=== PATIENT | male | born 1955 | race Caucasian/White ===

== ENCOUNTER 2019-08-24 08:43 | Inpatient (IN) ==
[2019-08-24] MEDS ORDERED: NS 1,000 ML IV ONE ×3 (09:18→15:20)
[2019-08-24] MEDS ORDERED: HUMULIN R IV ONE (09:21)
--- NOTE | 2019-08-24 09:33 | PROVIDER DOCUMENTATION ---
HPI-General Adult - General Chief Complaint: Fall Stated Complaint: fall Time Seen by Provider: 08/24/19 09:10 Source: patient, family, old records Allergies/Adverse Reactions: Patient Allergies Allergy/AdvReac Type Severity Reaction Status Date / Time trazodone Allergy Unknown Verified 08/24/19 10:18 Home Medications: Home Medication List Medication Instructions Recorded Confirmed Last Taken Type ATORVAstatin [Lipitor] 1 tab PO DAILY 08/23/19 08/24/19 Unknown History Empagliflozin [Jardiance] 1 tab PO DAILY 08/23/19 08/24/19 Unknown History Fenofibrate 1 tab PO DAILY 08/23/19 08/24/19 Unknown History Liraglutide [Victoza] 12 units SQ HS 08/23/19 08/24/19 Unknown History Metformin E.r. [Glucophage Xr] 2 tab PO BID 08/23/19 08/24/19 Unknown History Promethazine [Phenergan] 25 mg PO Q6H PRN PRN #10 tab 08/23/19 08/24/19 Unknown Rx Ropinirole [Requip] 1 tab PO DAILY 08/23/19 08/24/19 Unknown History Temazepam 2 cap PO HS 08/23/19 08/24/19 Unknown History - History of Present Illness -Gen Adult Nature of Presenting Problems: pt w/ known diabetes and hereditary peroneal palsy (CMT) returns to ED, having been Rx Zoflusa for influenza by Dr. Bernardo earlier in the week, and seen here yesterday by Dr. Grubbs for presumptive dehydration complicating emesis due to flu. pt had mild hyperkalemia, glucose intol w/ slight hypoNa yesterday, treated and released. returns now per EMS w/ hx pt collapsed last night and lay on floor for several hours until EMS was called to bring him this a.m. pt is on Jardiance and metformin et al for DM. Review of Systems - Adult - REVIEW OF SYSTEMS - ADULT Constitutional: reports: see HPI Eyes: reports: no symptoms reported Ears, Nose, Mouth & Throat: reports: no symptoms reported Cardiovascular: reports: no symptoms reported Respiratory: reports: no symptoms reported Gastrointestinal: reports: see HPI, vomiting Genitourinary: reports: no symptoms reported Musculoskeletal: reports: no symptoms reported Integumentary: reports: no symptoms reported Neurological: reports: see HPI Psychiatric: reports: no symptoms reported Endocrine: reports: no symptoms reported Hematologic/Lymphatic: reports: no symptoms reported Allergic/Immunologic: reports: no symptoms reported All Other Systems: Reviewed and Negative Past History - Adult - PAST MEDICAL HISTORY-ADULT Review of Records: reports: Old Records Reviewed Physical Exam-General - PHYSICAL EXAM-ADULT Initial Vital Signs Reviewed: Yes - CONSTITUTIONAL General Appearance: moderate distress, slow to respond - EYES Eyes: PERRL/EOMI. negative: meningismus - HEAD, EARS, NOSE, MOUTH & THROAT HENMT: normocephalic/atraumatic. negative: moist mucous membranes - NECK Neck: supple - RESPIRATORY Respiratory: lungs clear, normal breath sounds - CARDIOVASCULAR Cardiovascular: regular rate, rhythm, tachycardia - GASTROINTESTINAL (ABDOMEN) Abdominal Exam: non tender. negative: rigid, rebound - LYMPHATIC Lymphatic: no adenopathy - MUSCULOSKELETAL Back Exam: no CVA tenderness Extremity: normal range of motion (passive) Peripheral Pulses: radial (R): 1+, radial (L): 1+ - SKIN Integumentary: normal color, ecchymosis. 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 NOW Care 08/24/19 09:22 Active CHEST-1 VIEW [RAD] Stat Exams 08/24/19 09:18 Ordered ABG [RESP] Routine Lab 08/24/19 09:22 Ordered BLOOD CULTURE [BLDCUL] Stat Lab 08/24/19 09:20 Uncollected CBC WITH DIFF [HEME] Stat Lab 08/24/19 09:18 Uncollected CK TOTAL [CHEM] Stat Lab 08/24/19 09:18 Uncollected COMPREHENSIVE METABOLIC PANEL [CHEM] Stat Lab 08/24/19 09:18 Uncollected LACTATE, PLASMA [CHEM] Q3H Lab 08/24/19 09:30 Uncollected LACTATE, PLASMA [CHEM] Q3H Lab 08/24/19 12:30 Uncollected LACTATE, PLASMA [CHEM] Q3H Lab 08/24/19 15:30 Uncollected MAGNESIUM [CHEM] Stat Lab 08/24/19 09:18 Uncollected URINALYSIS W/POSS RFLX CULT [URINALYSIS] Stat Lab 08/24/19 09:18 Uncollected 0.9% Sodium Chloride Inj [Ns] 1,000 ml Med 08/24/19 09:18 Active IV 999 mls/hr 0.9% Sodium Chloride Inj [Ns] 1,000 ml Med 08/24/19 09:21 Active IV 999 mls/hr Insulin Human Regular [Humulin R] Med 08/24/19 09:21 Discontinued 7 unit IV NOW ONE Result Diagrams: 08/24/19 09:25 08/24/19 09:25 - REASSESSMENT Reassessment #2 Time Reassessed: 10:35 Status: unchanged (summary of current findings: profound DKA, hypothermia/hypothyroid lab indices, rhabdomyolysis. no clear evidence of bacterial infection, but pt given empiric Levaquin pending cultures. will consult Hospitalist for admit.) - CONSULTS/PCP/HOSPITALIST Notification #1 *Consult/PCP/Hospitalist*: Hospitalist Time Discussed: 11:08 Consult Disposition: Admit Departure - Departure Date of Disposition Decision: 08/24/19 Time of Disposition Decision: 11:09 DIAGNOSIS: DKA (diabetic ketoacidoses), Rhabdomyolysis, Hypothermia, Hypothyroidism Disposition: ADMITTED INPATIENT 09 Certified Medical Emergency: Emergent Condition: Critical Referrals and Follow-Ups: Jake Grubbs DO [Primary Care Provider] - - Critical Care Note This patient required my direct & personal management of CC.: Yes Total Time (mins): 75 Critical Care Statement: This patient required my direct personal management to treat or rule out processes, the absence of which, could potentiallly result in sudden, clinically significant life or limb threatening deterioration. Attestation - Physician/ SRINI Attestation The physician spent face to face time with patient:: Yes Advanced Practice Provider documentation review:: Supervising physician onsite and consulted in the evaluation and care of this patient. The physician did have a face to face encounter with the patient.
[2019-08-24 09:59] LABS: INR 1.28; PROTIME 16.2 Seconds (11.0-16.0); PTT 37.2 Seconds (22.3-41.8)
[2019-08-24 10:13] LABS: URINE SOURCE CATH
--- NOTE | 2019-08-24 10:13 | Diag Imaging Result Doc PS360 ---
EXAM: CHEST-1 VIEW - 08/24/2019 HISTORY: influenza, syncope TECHNIQUE: Portable chest COMPARISON: 08/23/2019 FINDINGS: Heart size is normal. The lungs appear clear. There is no pleural effusion or pneumothorax identified. IMPRESSION: No evidence of acute disease. Electronically signed by Darrel Jay 08/24/2019 10:11 AM
[2019-08-24 10:23] LABS: BASO# 0.14 X1000 (0.0-0.2); BASO% 0.7 % (0.0-0.8); HEMATOCRIT 48.5 % (42.0-52.0); HEMOGLOBIN 15.7 g/dL (14.0-18.0); IMM GRAN# 1.28 X1000 (0.0-0.04); IMM GRAN% 6.2 % (0.0-0.5); LYMPH# 1.95 X1000 (1.2-3.4); LYMPH% 9.4 % (20.5-51.1); MCH 30.4 PG (27-31); MCHC 32.4 g/dL (33-37); MONO# 2.16 X1000 (0.11-0.59); MONO% 10.4 % (1.7-9.3); MPV 9.7 FL (7.4-10.4); NEUT# 15.25 X1000 (1.4-6.5); NEUT% 73.3 % (42.2-75.2); PLT 266 X1000 (130-400); RBC 5.16 XMIL (4.7-6.1); RDW 12.8 % (11.5-14.5); WBC 20.78 X1000 (4.8-10.8)
[2019-08-24 10:25] LABS: BILIRUBIN URINE NEGATIVE (NEGATIVE); BLOOD URINE MODERATE (NEGATIVE); COLOR YELLOW; GLUCOSE URINE >1000 mg/dL (NEGATIVE); KETONE URINE 100 mg/dL (NEGATIVE); LEUKOCYTES URINE NEGATIVE (NEGATIVE); NITRITE URINE NEGATIVE (NEGATIVE); PROTEIN URINE 50 mg/dL (NEGATIVE); SP GRAVITY URINE 1.022; TURBIDITY URINE CLEAR (CLEAR); UROBILINOGEN URINE NORMAL (NORMAL)
[2019-08-24 10:28] LABS: ESTIMATED GFR > 60
[2019-08-24 10:39] LABS: UR EPITHELIAL CELLS <10 /HPF (<10); URINE BACTERIA NEGATIVE /HPF; URINE RBC <10 /HPF (<10); URINE WBC <10 /HPF (<10)
[2019-08-24] MEDS ORDERED: LEVAQUIN 750 MG/D5W 750 MG/150 ML IVPB IV ONE (10:41)
[2019-08-24 10:45] LABS: URINE YEAST NONE SEEN
[2019-08-24 10:47] LABS: BANDS 10 % (0-1); LYMPHS 10 % (21-51); MONO 2 % (1-9); SEGS 74 % (42-75)
[2019-08-24 10:48] LABS: ALLEN TEST YES; BE -28.3 mmoll (-3.0-3.0); BLOOD TYPE ARTERIAL; HCO3-(ACT) 2.8 mmoll (20.0-26.0); METHB 1.5 % (0.0-1.5); O2(CT) 21.3 mL/dL (15.0-23.0); O2HB 96.8 % (95.0-99.0); PO2(98.6) 141 mmHg (60-100); SAMPLE BLOOD; SAO2 99.8 % (95.0-100.0); THB 15.5 g/dL (11.5-17.4)
[2019-08-24 10:50] LABS: MODALITY ROOM AIR; PCO2(98.6) 11 mmHg (35-45); pH(98.6) 6.94 (7.35-7.45)
[2019-08-24 10:52] LABS: AGAP 44; ALBUMIN 4.4 g/dL (3.5-5.0); ALKALINE PHOSPHATASE 74 U/L (32-122); BUN 21 mg/dL (8-22); CALCIUM 8.6 mg/dL (8.8-10.2); CHLORIDE 94 mmol/L (98-107); CK TOTAL 1346 U/L (24-204); COSMO 301; CREATININE 1.2 mg/dL (0.7-1.2); GLUCOSE 305 mg/dL (70-104); GOT 93 U/L (10-34); GPT 83 U/L (10-44); MAGNESIUM 2.2 mg/dL (1.5-2.7); POTASSIUM 5.3 mmol/L (3.5-5.1); SODIUM 144 mmol/L (136-145); TCO2 6 mmol/L (25-35); TOTAL BILIRUBIN 0.53 mg/dL (0.20-1.00); TOTAL PROTEIN 6.6 g/dL (6.3-8.3)
[2019-08-24] MEDS ORDERED: SODIUM BICARBONATE 8.4% IV ONE (10:53)
[2019-08-24] MEDS ORDERED: D50W SYRINGE IV PRN ×3 (10:54→11:23)
[2019-08-24] MEDS ORDERED: SODIUM PHOSPHATE 30 MMOL in D5W 250 ML IV PRN ×2 (10:54→11:23)
[2019-08-24 10:55] LABS: T4 4.09 ug/dL (4.60-12.00); TSH 0.4 uIUmL (0.27-4.20)
[2019-08-24] MEDS ORDERED: HUMULIN R 100 UNIT in NS 100 ML IV SCH ×2 (11:00→11:30)
[2019-08-24] MEDS ORDERED: MAGNESIUM SULFATE 2 GM/S.W.I. 2 GM/50 ML IVPB IV PRN (11:23)
[2019-08-24] MEDS ORDERED: ZOFRAN IV PRN (11:23)
[2019-08-24] MEDS ORDERED: POTASSIUM CHLORIDE 20% LIQUID PO PRN (11:23)
[2019-08-24] MEDS ORDERED: POTASSIUM CHLORIDE 40 MEQ/SWI 40 MEQ/100 ML IVPB IV PRN (11:23)
[2019-08-24] MEDS ORDERED: TYLENOL PO PRN (11:23)
[2019-08-24] MEDS ORDERED: SODIUM BICARBONATE 8.4% 100 MEQ in STERILE WATER INJ. 500 ML IV PRN (11:23)
[2019-08-24] MEDS ORDERED: COMPAZINE IV PRN (11:23)
[2019-08-24] MEDS ORDERED: POTASSIUM CHLORIDE 20 MEQ/SWI 20 MEQ/100 ML IVPB IV PRN (11:23)
[2019-08-24] MEDS ORDERED: NS 1,000 ML IV SCH (11:30)
[2019-08-24 12:04] LABS: AMYLASE 85 U/L (20-200); LIPASE 114 U/L (13-60)
[2019-08-24 12:06] LABS: ALB/GLOB RATIO 1.3; DIRECT BILIRUBIN 0.3 mg/dL (0.00-0.20); TOTAL BILIRUBIN 0.47 mg/dL (0.20-1.00); TOTAL PROTEIN 7.1 g/dL (6.3-8.3)
[2019-08-24 12:16] LABS: ACETONE SERUM MODERATE (NEGATIVE)
--- NOTE | 2019-08-24 12:38 | Diag Imaging Result Doc PS360 ---
EXAM: CT HEAD W/O CONTRAST - 08/24/2019 HISTORY: altered mental status TECHNIQUE: CT head without contrast COMPARISON: None. FINDINGS: There is no evidence of intracranial hemorrhage, mass effect, midline shift, or hydrocephalus. There is no evidence of infarct, although acute infarcts may not be immediately visible. There is no evidence of skull fracture. There is questionable old fracture deformity right orbital floor noted. IMPRESSION: No visible acute intracranial abnormality. No hemorrhage or mass effect. This exam was performed using automated exposure control, adjustment of mA or kV according to patient size, and/or use of iterative reconstruction technique. Electronically signed by Darrel Jay 08/24/2019 12:36 PM
[2019-08-24] MEDS ORDERED: VANCOMYCIN IV PER PHARMACY MISC SCH (12:45)
--- NOTE | 2019-08-24 12:48 | Diag Imaging Result Doc PS360 ---
EXAM: CT THORAX/ABD/PELVIS W/O CON - 08/24/2019 HISTORY: severe acidosis; leukocytosis; recent flu; vomiting TECHNIQUE: CT thorax and abdomen/pelvis without contrast. No contrast administered per request of the referring provider. COMPARISON: None. FINDINGS: CT thorax: The lungs appear clear. There is no pleural effusion or pneumothorax identified. There are no abnormally enlarged mediastinal lymph nodes identified. CT abdomen/pelvis: There is some limitation of detail without administered contrast. There are no substantial abnormalities of the liver, spleen, adrenal glands, or pancreas identified. There are no calcified gallstones or pericholecystic inflammation identified. There is no renal stone or hydronephrosis identified. There are no substantially enlarged lymph nodes identified. There are lumbar spine degenerative changes with multilevel spinal stenosis noted. There is no evidence of bowel obstruction. The appendix is retrocecal in location and unremarkable. There is no substantial bowel wall thickening identified. There is no abscess identified. There is no free air or free fluid identified. There are streak artifacts from metallic left hip prosthesis which mildly limit detail the pelvis. There is a Marin catheter in the urinary bladder. There is no discrete abnormal pelvic mass or fluid collection identified. IMPRESSION: CT thorax: No evidence of acute disease. CT abdomen/pelvis: No evidence of acute disease. There are lumbar spine degenerative changes with multilevel spinal stenosis noted. This exam was performed using automated exposure control, adjustment of mA or kV according to patient size, and/or use of iterative reconstruction technique. Electronically signed by Darrel Jay 08/24/2019 12:46 PM
--- NOTE | 2019-08-24 12:52 | HISTORY AND PHYSICAL ---
PRIMARY CARE PROVIDER: Dr. Grubbs. CHIEF COMPLAINT: Altered mental status and weakness. HISTORY OF PRESENT ILLNESS: Mr. Diogo Hearn is a 64-year-old, male, who was most recently diagnosed with influenza, not sure if it is A or B, this last , was given a 1- time dose of Xoflusa. According to the , he has been having upper respiratory infection-type symptoms for at least 1-1/2 weeks, so was when they brought him in. He had also been having, since Sunday or Sunday, vomiting with any kind of p.o. intake. He has been having nausea. He coughs, but not coughing up any colors. He denies any fevers, but the day after he received the Xoflusa, and with the diagnosis of the flu, he had felt okay that day, but then that night felt bad, was throwing up, much more weak, not talking as much, no appetite. He came in yesterday, was diagnosed with gastroenteritis and dehydration, and was discharged with Phenergan. Then, around 1:00 this morning, his had heard something. He is walker dependent, but she woke up and found him around 1:00 in the morning on the floor, naked. He would not let her or the daughter get him up, so they bundled him up with as much blankets as they could. During that time, she did not realize that he was scraping his feet underneath the dresser. He was confused, and then this morning went ahead and had him brought into the emergency department. He is found to be in acidosis, specifically diabetic ketoacidosis. He is hyperglycemic, not significantly, but he is significantly acidotic. He has rhabdomyolysis. His thyroid studies are low, and he has hypothermia with a temp that was first recorded at 93.7. White count was 20,000, but no obvious source of infection, other than the recent diagnosis of influenza, so will admit him to the ICU, start him on the DKA protocol. Will go ahead and scan him, head, chest, abdomen, and pelvis. PAST MEDICAL HISTORY: 1. Diabetes mellitus type 2, only on oral medications. 2. Uwezrxp-Wctjd-Uwsut, which leaves his hands and feet cold and weak. 3. Degenerative disk disease and degenerative joint disease. 4. Hypothyroidism. 5. Hyperlipidemia. 6. Not recent teeth extraction from gum disease. PAST SURGICAL HISTORY: 1. Left hip replacement. 2. Tonsillectomy, adenoidectomy. 3. Full teeth extraction. SOCIAL HISTORY: Denies tobacco, alcohol, or illicit drug use. He is walker dependent. In October, he and his have been for 45 years. They have 2 adult children together. He is disabled. 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 His still has to work. FAMILY HISTORY: Mother had diabetes. Father had diabetes and prostate cancer. He had a brother who had thyroid and kidney cancer and liver disease. ALLERGIES: Trazodone. HOME MEDICATIONS: 1. Fenofibrate 160 mg p.o. daily. 2. Metformin 1000 mg p.o. twice daily. 3. Jardiance 25 mg p.o. daily. 4. Atorvastatin 40 mg p.o. daily. 5. Requip 1 mg p.o. daily. 6. Temazepam 30 mg p.o. nightly. 7. Victoza 12 units subcutaneously nightly. 8. Phenergan 25 mg p.o. every 6 hours p.r.n. REVIEW OF SYSTEMS: He denies nausea at this time. He complains of pain in both tops of his feet where he scraped them. States that his back pain feels better, and states he feels a little bit better. Otherwise, 14-point review of systems are complete and all were negative, except for those mentioned above in the HPI. PHYSICAL EXAMINATION: VITAL SIGNS: Temperature 95.1 degrees, heart rate 119, respiratory rate 22, blood pressure 112/67, O2 saturation 99% on room air, 5 feet 10 inches tall, 170 pounds, BMI is 24.4. GENERAL: Mr. Diogo Hearn is a 64-year-old, male. He is in no acute distress. He is able to answer some questions appropriately. He is slightly confused. HEENT: Atraumatic, normocephalic. Pupils are equal and reactive. Extraocular movements were intact. Mucous membranes are dry. NECK: Trachea midline. CARDIOVASCULAR: S1, S2. Tachycardic rate and rhythm. No rubs, gallops, murmurs. No lower extremity edema. There are +2 dorsalis and radial pulses. Negative for JVD or carotid bruits. PULMONARY: Clear to auscultation. Bilateral breath sounds. Decreased in the bases. No accessory muscle use or work of breathing noted. GI: Soft, nontender, nondistended. Positive bowel sounds x4. EXTREMITIES: Decreased range of motion, specifically in the lower extremities. He cannot do PND with the feet, and strength is symmetric; however, extremely weak, about a 2/5 strength. NEUROLOGIC: Oriented to name only. Follows commands. Decreased sensory in the lower extremities. He feels like they are burning because they are red and hot, and normally he has got cold lower extremities. SKIN: Warm, dry, intact, except for the tops of his feet, where he has been scraping them on a dresser while he was on the floor. LABORATORY DATA: White blood cells 20,000, hemoglobin 15, hematocrit 48, platelet count 266,000. INR is 1.28, PTT is 37.2. PH 6.94, pCO2 of 11, PO2 of 141, bicarb 2.8, base excess is -28, saturation 96%, lactate 1 on the ABGs. Serum lactate is 1.5. Sodium 144, potassium 5.3, BUN 21, creatinine is 1.2, glucose 305, calcium 8.6, magnesium 2.2, bilirubin 0.53, AST 93, ALT 83. CK 1346. Troponin 29. Albumin 4.4, lactate 1.5, TSH 0.40, T4 of 4.09. Urinalysis shows 50 protein, greater than 1000 glucose, 100 ketones, moderate blood. MICROBIOLOGY: Blood cultures obtained. IMAGING: Chest x-ray: No acute disease. ASSESSMENT AND PLAN: 1. Diabetic ketoacidosis. He will be on the protocol. He has got some mild hyperkalemia with it, and severe metabolic acidosis with anion gap of 44. He will be on an insulin drip. He has received intravenous fluids, and will replace electrolytes per protocol. 2. Recent diagnosis of gastroenteritis. He has had vomiting for several days, causing dehydration and even rhabdomyolysis, so again, he is receiving intravenous fluid hydration. He can have antiemetics. 3. Leukocytosis with no clear evidence of infection. However, he is very acidotic and he has been vomiting and he was recently diagnosed with the flu, so he will be on broad-spectrum antibiotics. 4. Recent diagnosis of influenza. Received a dose of Xoflusa. We could consider putting him on Tamiflu, but it an also have gastrointestinal side effects, and he is already experiencing that, which may make him more nauseated and throw up. 5. Hypothyroidism with hypothermia. He has got the Seng Hugger. They are warming him up. Will continue his Synthroid. He maybe could use a dose of intravenous Synthroid possibly. 6. Hyperlipidemia. Will hold the fenofibrate. He does have some transaminitis right now, probably from dehydration. 7. History of Qknwyqa-Sgufp-Hicuc, which already makes him weak in all extremities, cold hands and feet. However, his feet are actually really hot and kind of in a red state at this moment. He uses a walker at home. Will do physical therapy. 8. Diabetes mellitus type 2. Please see #1, and will check and see what his hemoglobin A1c is. Hold oral diabetic medications for now. 9. Rhabdomyolysis. Will do daily CKs, and he is on intravenous fluids. Kidney function is currently intact. 10. Metabolic encephalopathy. Hopefully, should improve once acidosis and his anion gap closes. Dictated by ELODIA López for Edgardo Graham MD cc: ELODIA López MD
[2019-08-24] MEDS: D5 NS 1,000 ML IV PRN ×2 (13:03→20:20)
[2019-08-24 13:15] LABS: UR AMPHETAMINES QUAL NONE DETECTED (NONE DETECT); UR BARBITUATES QUAL NONE DETECTED (NONE DETECT); UR BENZODIAZEPIN QUAL PRESUMPTIVE POSITIVE (NONE DETECT); UR CANNABINOIDS QUAL NONE DETECTED (NONE DETECT); UR COCAINE QUAL NONE DETECTED (NONE DETECT); UR METHADONE QUAL NONE DETECTED (NONE DETECT); UR OPIATES QUAL NONE DETECTED (NONE DETECT); UR OXYCODONE QUAL NONE DETECTED (NONE DETECT); UR PCP QUAL NONE DETECTED (NONE DETECT)
[2019-08-24] MEDS: SODIUM BICARBONATE 8.4% 150 MEQ in STERILE WATER INJ. 1,000 ML IV SCH (13:19)
[2019-08-24 13:36] LABS: AGAP 41; BUN 18 mg/dL (8-22); CALCIUM 7.6 mg/dL (8.8-10.2); CHLORIDE 102 mmol/L (98-107); COSMO 302; CREATININE 1.1 mg/dL (0.7-1.2); ESTIMATED GFR > 60; GLUCOSE 199 mg/dL (70-104); PHOSPHORUS 2.6 mg/dL (2.7-4.5); POTASSIUM 4.3 mmol/L (3.5-5.1); SODIUM 148 mmol/L (136-145); TCO2 5 mmol/L (25-35)
[2019-08-24 13:43] LABS: ALLEN TEST YES; BE -22.4 mmoll (-3.0-3.0); BLOOD TYPE ARTERIAL; HCO3-(ACT) 7.4 mmoll (20.0-26.0); METHB 1.5 % (0.0-1.5); O2(CT) 19.7 mL/dL (15.0-23.0); O2HB 96.7 % (95.0-99.0); PO2(98.6) 124 mmHg (60-100); SAMPLE BLOOD; SAO2 99.8 % (95.0-100.0); THB 14.4 g/dL (11.5-17.4)
[2019-08-24 13:44] LABS: MODALITY ROOM AIR; PCO2(98.6) 12 mmHg (35-45); pH(98.6) 7.14 (7.35-7.45)
[2019-08-24] MEDS ORDERED: VANCOMYCIN 2 GM in NS 500 ML IV ONE (14:00)
[2019-08-24 16:22] LABS: ESTIMATED GFR > 60
[2019-08-24 16:26] LABS: AGAP 36; BUN 17 mg/dL (8-22); CALCIUM 7.8 mg/dL (8.8-10.2); CHLORIDE 105 mmol/L (98-107); COSMO 302; GLUCOSE 211 mg/dL (70-104); PHOSPHORUS 1.9 mg/dL (2.7-4.5); POTASSIUM 4.3 mmol/L (3.5-5.1); SODIUM 148 mmol/L (136-145); TCO2 7 mmol/L (25-35)
[2019-08-24] MEDS: PROTONIX IV SCH (17:07)
[2019-08-24] MEDS: SODIUM CHLORIDE 0.9% INJ SCH (17:07)
--- NOTE | 2019-08-24 17:21 | HISTORY AND PHYSICAL ---
The patient had recently been diagnosed with the flu. He came in very ill, he came to the ER yesterday for the flu. He had recently been treated, he was sent home and somehow he fell and was unable to get up. He has a history of hereditary peroneal palsy so I guess maybe he has got a footdrop. He had been given Xofluza for influenza recently. He is diabetic but non-insulin dependent. He came in today with profound acidosis considering DKA, hypothermia rhabdo, DKA. He is going to get fluids and follow very closely and IV insulin and we will continue to monitor. He is significantly acidotic. He is on a sodium bicarbonate drip as well and the rhabdo we will continue the bicarbonate drip and metabolic acidosis he is on bicarbonate drip. We will adjust insulin accordingly. His A1c is actually not that badly controlled 7 but I think he has just been out of his medications unable to take them. Slda-[id number] encounter with Jennifer Hernandez. 30 minute critical care time DKA, IV insulin. cc: Edgardo Graham MD
--- NOTE | 2019-08-24 17:22 | EKG Report ---
Test Performed on : 08/24/2019 09:00:45 AM Test Reason : tachycardia Blood Pressure : / mmHG Vent. Rate : 157 BPM Atrial Rate : 107 BPM P-R Int : 000 ms QRS Dur : 058 ms QT Int : 216 ms P-R-T Axes : 000 -40 118 degrees QTc Int : 349 ms Poor data quality, interpretation may be adversely affected Atrial fibrillation. with rapid ventricular response. with premature ventricular or aberrantly conduc anup complexes. Left axis deviation Low voltage QRS Inferior-posterior infarct , age undetermined Abnormal ECG No previous ECGs available Unconfirmed Result
[2019-08-24] MEDS: POTASSIUM CHLORIDE 10% LIQUID PO PRN ×2 (18:04→21:32)
[2019-08-24] MEDS: ZOSYN 3.375 GM in NS 50 ML IV SCH (20:17)
[2019-08-24] MEDS: RESTORIL PO SCH (20:17)
[2019-08-24 20:22] LABS: ALLEN TEST YES; BE -11.9 mmoll (-3.0-3.0); BLOOD TYPE ARTERIAL; HCO3-(ACT) 15.6 mmoll (20.0-26.0); METHB 1.7 % (0.0-1.5); O2HB 96.6 % (95.0-99.0); PO2(98.6) 158 mmHg (60-100); SAMPLE BLOOD; SAO2 99.6 % (95.0-100.0); pH(98.6) 7.37 (7.35-7.45)
[2019-08-24 20:23] LABS: MODALITY ROOM AIR
[2019-08-24 20:24] LABS: PCO2(98.6) 19 mmHg (35-45)
[2019-08-24 20:40] LABS: AGAP 23; BUN 14 mg/dL (8-22); CALCIUM 7.6 mg/dL (8.8-10.2); CHLORIDE 113 mmol/L (98-107); COSMO 295; CREATININE 0.8 mg/dL (0.7-1.2); ESTIMATED GFR > 60; GLUCOSE 161 mg/dL (70-104); MAGNESIUM 1.6 mg/dL (1.5-2.7); POTASSIUM 4.1 mmol/L (3.5-5.1); SODIUM 146 mmol/L (136-145); TCO2 10 mmol/L (25-35)
[2019-08-24 21:04] LABS: PHOSPHORUS 0.5 mg/dL (2.7-4.5)
[2019-08-24 23:35] LABS: ALLEN TEST YES; BE -9.2 mmoll (-3.0-3.0); BLOOD TYPE ARTERIAL; HCO3-(ACT) 17.7 mmoll (20.0-26.0); METHB 1.2 % (0.0-1.5); O2(CT) 17.1 mL/dL (15.0-23.0); O2HB 96.1 % (95.0-99.0); PCO2(98.6) 24 mmHg (35-45); PO2(98.6) 82 mmHg (60-100); SAMPLE BLOOD; SAO2 98.6 % (95.0-100.0); THB 12.6 g/dL (11.5-17.4); pH(98.6) 7.38 (7.35-7.45)
[2019-08-24 23:37] LABS: MODALITY ROOM AIR
[2019-08-25 01:21] LABS: AGAP 24; BUN 12 mg/dL (8-22); CALCIUM 6.8 mg/dL (8.8-10.2); CHLORIDE 111 mmol/L (98-107); COSMO 298; CREATININE 0.9 mg/dL (0.7-1.2); ESTIMATED GFR > 60; GLUCOSE 168 mg/dL (70-104); MAGNESIUM 2.5 mg/dL (1.5-2.7); PHOSPHORUS 1.3 mg/dL (2.7-4.5); SODIUM 148 mmol/L (136-145); TCO2 14 mmol/L (25-35)
[2019-08-25] MEDS ORDERED: CALCIUM GLUCONATE 2 GM in NS 100 ML IV ONE (01:24)
[2019-08-25] MEDS: ZOSYN 3.375 GM in NS 50 ML IV SCH ×2 (01:47→08:17)
[2019-08-25] MEDS: POTASSIUM CHLORIDE 10% LIQUID PO PRN ×6 (01:47→20:39)
[2019-08-25 03:47] LABS: ALLEN TEST YES; BE -2.9 mmoll (-3.0-3.0); BLOOD TYPE ARTERIAL; HCO3-(ACT) 22.6 mmoll (20.0-26.0); METHB 1.4 % (0.0-1.5); O2(CT) 15.8 mL/dL (15.0-23.0); O2HB 95.9 % (95.0-99.0); PCO2(98.6) 30 mmHg (35-45); PO2(98.6) 80 mmHg (60-100); SAMPLE BLOOD; SAO2 98.5 % (95.0-100.0); THB 11.7 g/dL (11.5-17.4); pH(98.6) 7.44 (7.35-7.45)
[2019-08-25 03:48] LABS: MODALITY ROOM AIR
[2019-08-25] MEDS: D5 NS 1,000 ML IV PRN (04:30)
[2019-08-25] MEDS: PROTONIX IV SCH ×2 (04:30→16:23)
[2019-08-25] MEDS: SODIUM BICARBONATE 8.4% 150 MEQ in STERILE WATER INJ. 1,000 ML IV SCH (04:30)
[2019-08-25 04:32] LABS: AGAP 17; ALB/GLOB RATIO 1.6; ALBUMIN 2.7 g/dL (3.5-5.0); ALKALINE PHOSPHATASE 46 U/L (32-122); BUN 10 mg/dL (8-22); CALCIUM 7.8 mg/dL (8.8-10.2); CHLORIDE 112 mmol/L (98-107); CK TOTAL 770 U/L (24-204); COSMO 293; CREATININE 0.8 mg/dL (0.7-1.2); ESTIMATED GFR > 60; GLUCOSE 101 mg/dL (70-104); GOT 55 U/L (10-34); GPT 48 U/L (10-44); MAGNESIUM 2.2 mg/dL (1.5-2.7); POTASSIUM 3.8 mmol/L (3.5-5.1); SODIUM 148 mmol/L (136-145); TCO2 19 mmol/L (25-35); TOTAL PROTEIN 4.4 g/dL (6.3-8.3)
[2019-08-25 04:42] LABS: BASO# 0.01 X1000 (0.0-0.2); BASO% 0.1 % (0.0-0.8); HEMATOCRIT 32.2 % (42.0-52.0); HEMOGLOBIN 11.1 g/dL (14.0-18.0); IMM GRAN# 0.21 X1000 (0.0-0.04); IMM GRAN% 2.9 % (0.0-0.5); LYMPH# 0.57 X1000 (1.2-3.4); LYMPH% 7.9 % (20.5-51.1); MCH 30.1 PG (27-31); MCHC 34.5 g/dL (33-37); MCV 87.3 FL (81-99); MONO# 0.79 X1000 (0.11-0.59); MONO% 10.9 % (1.7-9.3); MPV 9.2 FL (7.4-10.4); NEUT# 5.67 X1000 (1.4-6.5); NEUT% 78.2 % (42.2-75.2); PLT 183 X1000 (130-400); RBC 3.69 XMIL (4.7-6.1); WBC 7.25 X1000 (4.8-10.8)
--- NOTE | 2019-08-25 07:34 | EKG Report ---
Test Performed on : 08/25/2019 07:13:25 AM Test Reason : dka Blood Pressure : / mmHG Vent. Rate : 100 BPM Atrial Rate : 100 BPM P-R Int : 146 ms QRS Dur : 074 ms QT Int : 344 ms P-R-T Axes : 092 -28 037 degrees QTc Int : 443 ms Normal sinus rhythm. Low voltage QRS Possible Inferior infarct (cited on or before 24-AUG-2019) Abnormal ECG When compared with ECG of 24-AUG-2019 21:28, (Unconfirmed) Vent. rate has decreased BY 70 BPM Confirmed by Quinten Stone MD ([id number]) on 08/26/2019 9:54:43 PM
--- NOTE | 2019-08-25 08:05 | EKG Report ---
Test Performed on : 08/24/2019 9:28:47 PM Test Reason : TACHY Blood Pressure : / mmHG Vent. Rate : 170 BPM Atrial Rate : 090 BPM P-R Int : 000 ms QRS Dur : 080 ms QT Int : 290 ms P-R-T Axes : 000 -68 072 degrees QTc Int : 487 ms Supraventricular tachycardia. vs. atrial flutter with RVR Left axis deviation Low voltage QRS Inferior-posterior infarct (cited on or before 24-AUG-2019) Abnormal ECG When compared with ECG of 24-AUG-2019 10:31, (Unconfirmed) Non-specific change in ST segment in Anterior leads Confirmed by Quinten Stone MD ([id number]) on 08/26/2019 9:50:10 PM
[2019-08-25] MEDS: REQUIP PO SCH (08:17)
[2019-08-25 08:22] LABS: ALLEN TEST YES; BE -8.8 mmoll (-3.0-3.0); BLOOD TYPE ARTERIAL; METHB 1.6 % (0.0-1.5); O2(CT) 15.9 mL/dL (15.0-23.0); O2HB 95.9 % (95.0-99.0); PCO2(98.6) 24 mmHg (35-45); PO2(98.6) 86 mmHg (60-100); SAMPLE BLOOD; THB 11.7 g/dL (11.5-17.4); pH(98.6) 7.39 (7.35-7.45)
[2019-08-25 08:23] LABS: MODALITY ROOM AIR
[2019-08-25 08:27] LABS: AGAP 23; BUN 8 mg/dL (8-22); CALCIUM 7.5 mg/dL (8.8-10.2); CHLORIDE 109 mmol/L (98-107); COSMO 295; CREATININE 0.8 mg/dL (0.7-1.2); ESTIMATED GFR > 60; GLUCOSE 168 mg/dL (70-104); POTASSIUM 4.1 mmol/L (3.5-5.1); SODIUM 147 mmol/L (136-145); TCO2 15 mmol/L (25-35)
[2019-08-25] MEDS: D5 1/2 NS 1,000 ML IV SCH (12:11)
[2019-08-25 12:36] LABS: ESTIMATED GFR > 60
[2019-08-25 12:42] LABS: AGAP 22; BUN 8 mg/dL (8-22); CALCIUM 7.9 mg/dL (8.8-10.2); CHLORIDE 109 mmol/L (98-107); COSMO 293; CREATININE 0.8 mg/dL (0.7-1.2); GLUCOSE 204 mg/dL (70-104); MAGNESIUM 2.2 mg/dL (1.5-2.7); POTASSIUM 4.4 mmol/L (3.5-5.1); SODIUM 145 mmol/L (136-145); TCO2 14 mmol/L (25-35)
--- NOTE | 2019-08-25 12:42 | PROGRESS NOTE ---
DATE: 08/25/2019 SUBJECTIVE: The patient has no major complaints. OBJECTIVE: Vital Signs: Blood pressure is 91/54, heart rate 86, respiratory rate 15, temp was 97.9 degrees. Cardiovascular: Regular rate and rhythm. Pulmonary: Bilateral breath sounds. Clear to auscultation. GI: Soft, nontender, nondistended. Bowel sounds are positive. LABORATORY DATA: White count is 7.39. PCO2 of 24, PaO2 of 86. PROBLEM LIST: 1. Diabetic ketoacidosis. Still not quite where gap is closed, but will continue to follow. 2. Influenza, gastroenteritis. That seems to be better. I do not have any evidence of infection, so I have stopped his antibiotics, and his white count is normal today. I think the leukocytosis is due to the diabetic ketoacidosis. 3. Hypothyroidism is improved. I do not think his numbers are off. His TSH is on the high side. 4. Protein calorie malnutrition. Will continue to follow. cc: Edgardo Graham MD
[2019-08-25] MEDS ORDERED: VANCOMYCIN 1.7 GM in NS 250 ML IV SCH (14:00)
[2019-08-25] MEDS: SODIUM CHLORIDE 0.9% INJ SCH (16:23)
[2019-08-25 17:21] LABS: AGAP 16; BUN 7 mg/dL (8-22); CALCIUM 7.7 mg/dL (8.8-10.2); CHLORIDE 109 mmol/L (98-107); COSMO 286; CREATININE 0.8 mg/dL (0.7-1.2); ESTIMATED GFR > 60; GLUCOSE 162 mg/dL (70-104); POTASSIUM 4.1 mmol/L (3.5-5.1); SODIUM 143 mmol/L (136-145); TCO2 18 mmol/L (25-35)
[2019-08-25] MEDS: RESTORIL PO SCH (20:09)
[2019-08-25 20:13] LABS: AGAP 15; BUN 6 mg/dL (8-22); CALCIUM 7.6 mg/dL (8.8-10.2); CHLORIDE 105 mmol/L (98-107); COSMO 278; CREATININE 0.7 mg/dL (0.7-1.2); ESTIMATED GFR > 60; GLUCOSE 147 mg/dL (70-104); SODIUM 139 mmol/L (136-145); TCO2 19 mmol/L (25-35)
[2019-08-26] LABS: AGAP 16; BUN 5 mg/dL (8-22); CALCIUM 7.6 mg/dL (8.8-10.2); CHLORIDE 110 mmol/L (98-107); COSMO 288; CREATININE 0.7 mg/dL (0.7-1.2); ESTIMATED GFR > 60; GLUCOSE 134 mg/dL (70-104); POTASSIUM 4.3 mmol/L (3.5-5.1); SODIUM 145 mmol/L (136-145); TCO2 19 mmol/L (25-35)
[2019-08-26] MEDS: POTASSIUM CHLORIDE 10% LIQUID PO PRN ×3 (00:07→10:52)
[2019-08-26] MEDS: D5 1/2 NS 1,000 ML IV SCH (02:29)
[2019-08-26 03:53] LABS: AGAP 15; BUN 5 mg/dL (8-22); CALCIUM 7.5 mg/dL (8.8-10.2); CHLORIDE 105 mmol/L (98-107); COSMO 277; CREATININE 0.6 mg/dL (0.7-1.2); ESTIMATED GFR > 60; GLUCOSE 131 mg/dL (70-104); POTASSIUM 4.2 mmol/L (3.5-5.1); SODIUM 139 mmol/L (136-145); TCO2 19 mmol/L (25-35)
[2019-08-26] MEDS: SODIUM CHLORIDE 0.9% INJ SCH (04:40)
[2019-08-26] MEDS: PROTONIX IV SCH ×2 (04:40→16:54)
[2019-08-26 06:14] LABS: EOS# 0.01 X1000 (0.0-0.7); EOS% 0.2 % (0.0-10.0); HEMATOCRIT 33.4 % (42.0-52.0); HEMOGLOBIN 11.5 g/dL (14.0-18.0); IMM GRAN# 0.05 X1000 (0.0-0.04); LYMPH# 1.39 X1000 (1.2-3.4); LYMPH% 27.6 % (20.5-51.1); MCHC 34.4 g/dL (33-37); MCV 87.2 FL (81-99); MONO# 0.44 X1000 (0.11-0.59); MONO% 8.7 % (1.7-9.3); MPV 9.5 FL (7.4-10.4); NEUT# 3.14 X1000 (1.4-6.5); NEUT% 62.5 % (42.2-75.2); PLT 174 X1000 (130-400); RBC 3.83 XMIL (4.7-6.1); RDW 12.3 % (11.5-14.5); WBC 5.03 X1000 (4.8-10.8)
[2019-08-26 06:43] LABS: AGAP 16; ALBUMIN 2.5 g/dL (3.5-5.0); ALKALINE PHOSPHATASE 49 U/L (32-122); BUN 5 mg/dL (8-22); CALCIUM 7.4 mg/dL (8.8-10.2); CHLORIDE 109 mmol/L (98-107); CK TOTAL 576 U/L (24-204); COSMO 280; CREATININE 0.7 mg/dL (0.7-1.2); ESTIMATED GFR > 60; GLUCOSE 128 mg/dL (70-104); GOT 72 U/L (10-34); GPT 45 U/L (10-44); MAGNESIUM 2.1 mg/dL (1.5-2.7); POTASSIUM 4.8 mmol/L (3.5-5.1); SODIUM 141 mmol/L (136-145); TCO2 16 mmol/L (25-35); TOTAL BILIRUBIN 0.34 mg/dL (0.20-1.00); TOTAL PROTEIN 4.9 g/dL (6.3-8.3)
[2019-08-26] MEDS: REQUIP PO SCH (08:31)
[2019-08-26 10:35] LABS: AGAP 13; BUN 5 mg/dL (8-22); CALCIUM 7.3 mg/dL (8.8-10.2); CHLORIDE 104 mmol/L (98-107); COSMO 275; CREATININE 0.6 mg/dL (0.7-1.2); ESTIMATED GFR > 60; GLUCOSE 169 mg/dL (70-104); SODIUM 137 mmol/L (136-145); TCO2 20 mmol/L (25-35)
[2019-08-26] MEDS ORDERED: HUMULIN R 100 UNIT in NS 100 ML IV SCH (11:50)
[2019-08-26] MEDS: LANTUS INSULIN SUBQ SCH (12:07)
[2019-08-26] MEDS ORDERED: NS 500 ML IV ONE (12:07)
[2019-08-26] MEDS: HUMULIN R SUBQ SCH ×3 (12:37→19:30)
--- NOTE | 2019-08-26 12:41 | PROGRESS NOTE ---
DATE: 08/26/2019 SUBJECTIVE: The patient has no major complaints. He looks a little bit better. OBJECTIVE: Vital Signs: Blood pressure is in the 90s/50s, heart rate 76, respiratory rate is 16, temperature was afebrile, but at least not hypothermic. Cardiovascular: Regular rate and rhythm. Pulmonary: Bilateral breath sounds. Clear to auscultation. GI: Soft, nontender, nondistended. Bowel sounds were positive. LABORATORY DATA: White count is 5, hemoglobin and hematocrit 11 and 33, platelets 174,000. His last chemistry showed a bicarb of 20, with a gap of 13, so he is basically closed. He seems to be doing better. ASSESSMENT AND PLAN: 1. Diabetic ketoacidosis. Gap is closed. We will transfer him to [facility], and follow. 2. Influenza, gastroenteritis. He seems to be better. He is not on any antibiotics. 3. Hypothyroidism. He has got a low T4, but a normal TSH. He is kind of borderline. 4. Protein calorie malnutrition. We will continue nutritional supplements, and follow closely. I think he is probably stable to go to the floor. 5. Rhabdomyolysis with acute kidney injury. That seems to be stable. His CK is down to 576. Continue fluids for the time being. In fact, I am going to bolus him a little bit today. 6. Disposition. Again, I think he is probably okay to go to step-down. Will make those arrangements. cc: Edgardo Graham MD
[2019-08-26] MEDS: RESTORIL PO SCH (20:55)
[2019-08-27] MEDS: HUMULIN R SUBQ SCH ×6 (00:19→20:00)
[2019-08-27] MEDS: PROTONIX IV SCH ×2 (04:43→16:34)
[2019-08-27 07:06] LABS: EOS# 0.01 X1000 (0.0-0.7); EOS% 0.2 % (0.0-10.0); HEMATOCRIT 38.7 % (42.0-52.0); HEMOGLOBIN 13.5 g/dL (14.0-18.0); IMM GRAN# 0.03 X1000 (0.0-0.04); IMM GRAN% 0.7 % (0.0-0.5); LYMPH# 1.19 X1000 (1.2-3.4); LYMPH% 28.6 % (20.5-51.1); MCH 30.4 PG (27-31); MCHC 34.9 g/dL (33-37); MCV 87.2 FL (81-99); MONO# 0.36 X1000 (0.11-0.59); MONO% 8.7 % (1.7-9.3); MPV 9.5 FL (7.4-10.4); NEUT# 2.57 X1000 (1.4-6.5); NEUT% 61.8 % (42.2-75.2); PLT 167 X1000 (130-400); RBC 4.44 XMIL (4.7-6.1); RDW 12.4 % (11.5-14.5); WBC 4.16 X1000 (4.8-10.8)
[2019-08-27 07:25] LABS: AGAP 13; ALB/GLOB RATIO 1.2; ALKALINE PHOSPHATASE 54 U/L (32-122); BUN 5 mg/dL (8-22); CHLORIDE 106 mmol/L (98-107); CK TOTAL 310 U/L (24-204); COSMO 284; CREATININE 0.5 mg/dL (0.7-1.2); ESTIMATED GFR > 60; GLUCOSE 125 mg/dL (70-104); GOT 62 U/L (10-34); GPT 49 U/L (10-44); MAGNESIUM 2.2 mg/dL (1.5-2.7); POTASSIUM 4.4 mmol/L (3.5-5.1); SODIUM 143 mmol/L (136-145); TCO2 24 mmol/L (25-35); TOTAL BILIRUBIN 0.62 mg/dL (0.20-1.00); TOTAL PROTEIN 5.6 g/dL (6.3-8.3)
[2019-08-27] MEDS: LANTUS INSULIN SUBQ SCH (08:25)
[2019-08-27] MEDS: REQUIP PO SCH (08:27)
--- NOTE | 2019-08-27 14:31 | PROGRESS NOTE ---
DATE: 08/27/2019 SUBJECTIVE: The patient has no major complaints. OBJECTIVE: Vital signs: Blood pressure is 103/66, heart rate of 74, respiratory rate is 16, temperature is 98 degrees, 98% on room air. Cardiovascular: Regular rate and rhythm. Pulmonary: Bilateral breath sounds clear to auscultation. Gastrointestinal: Soft, nontender, nondistended. Bowel sounds are positive. LABORATORY DATA: White count is 4, hemoglobin and hematocrit 13 and 38, platelets 167,000. Basic was normal. AST and ALT are 62 and 49. PROBLEM LIST: 1. Diabetic ketoacidosis. Seems to be stable. He is stable on Lantus. I would recommend he stay on Lantus. I do not think he should be on Jardiance anymore since he had DKA; he is stabilizing. 2. Elevated liver enzymes. We will check hepatitis and abdominal ultrasound and follow. 3. Disposition. Pending clinical status. 4. Weakness, Smldjvh-Nnvuh-Qqfjf syndrome. We will continue to start getting him up and around. Hopefully, discharge in next 1 to 2 days. cc: Edgardo Graham MD [facility]
[2019-08-27] MEDS: SODIUM CHLORIDE 0.9% INJ SCH (16:34)
[2019-08-27] MEDS: RESTORIL PO SCH (22:44)
[2019-08-28] MEDS: SODIUM CHLORIDE 0.9% INJ SCH ×2 (04:25→16:41)
[2019-08-28] MEDS: PROTONIX IV SCH ×2 (04:25→16:41)
[2019-08-28] MEDS: HUMULIN R SUBQ SCH ×5 (04:28→16:40)
--- NOTE | 2019-08-28 08:34 | Diag Imaging Result Doc PS360 ---
EXAM: US ABDOMEN-COMPLETE 08/28/2019 HISTORY: abdominal pain TECHNIQUE: Abdominal ultrasound COMMENT: The visualized portion of the aorta and inferior vena cava are within normal limits. There is antegrade flow in the portal vein. There is a right pleural effusion. There is very poor detail seen in portions of the liver. No definite abnormalities are present. There is no evidence of biliary dilatation the common bile duct being less than 4 mm in diameter. The gallbladder is clear and nontender. The kidneys are without evidence of hydronephrosis or mass. The spleen is not enlarged. The pancreas is obscured. IMPRESSION: Right pleural effusion. No evidence of acute intra-abdominal disease. Electronically signed by Russell Ortiz 08/28/2019 8:32 AM
[2019-08-28] MEDS: LANTUS INSULIN SUBQ SCH (08:39)
[2019-08-28] MEDS: REQUIP PO SCH (08:39)
[2019-08-28 08:48] LABS: BASO# 0.01 X1000 (0.0-0.2); BASO% 0.2 % (0.0-0.8); EOS# 0.03 X1000 (0.0-0.7); EOS% 0.6 % (0.0-10.0); HEMATOCRIT 40.8 % (42.0-52.0); HEMOGLOBIN 13.9 g/dL (14.0-18.0); IMM GRAN# 0.02 X1000 (0.0-0.04); IMM GRAN% 0.4 % (0.0-0.5); LYMPH# 0.86 X1000 (1.2-3.4); LYMPH% 18.3 % (20.5-51.1); MCH 30.2 PG (27-31); MCHC 34.1 g/dL (33-37); MCV 88.7 FL (81-99); MONO# 0.44 X1000 (0.11-0.59); MONO% 9.4 % (1.7-9.3); MPV 9.7 FL (7.4-10.4); NEUT# 3.34 X1000 (1.4-6.5); NEUT% 71.1 % (42.2-75.2); PLT 186 X1000 (130-400); RDW 12.7 % (11.5-14.5)
[2019-08-28 09:24] LABS: AGAP 13; ALB/GLOB RATIO 1.2; ALBUMIN 3.1 g/dL (3.5-5.0); ALKALINE PHOSPHATASE 55 U/L (32-122); BUN 8 mg/dL (8-22); CALCIUM 8.7 mg/dL (8.8-10.2); CHLORIDE 105 mmol/L (98-107); CK TOTAL 154 U/L (24-204); COSMO 283; CREATININE 0.5 mg/dL (0.7-1.2); ESTIMATED GFR > 60; GLUCOSE 135 mg/dL (70-104); GOT 34 U/L (10-34); GPT 41 U/L (10-44); MAGNESIUM 2.1 mg/dL (1.5-2.7); POTASSIUM 3.9 mmol/L (3.5-5.1); SODIUM 142 mmol/L (136-145); TCO2 24 mmol/L (25-35); TOTAL BILIRUBIN 0.67 mg/dL (0.20-1.00); TOTAL PROTEIN 5.7 g/dL (6.3-8.3)
[2019-08-28 15:56] VITALS: BP 112/64
[2019-08-29 14:07] LABS: HEPATITIS PROFILE ACUTE SEE COMMENTS
--- NOTE | 2019-10-02 18:05 | DISCHARGE SUMMARY ---
ADMISSION DATE: 08/24/2019 DISCHARGE DATE: 08/28/2019 DISCHARGE DIAGNOSES: 1. Diabetic ketoacidosis. 2. Elevated liver enzymes, possibly related to steatohepatitis. 3. History of Bsfqxei-Bbxlv-Hkupr syndrome. CONSULTATIONS: None. HOSPITAL COURSE: This is a 64-year-old gentleman who was recently diagnosed with the flu. He had completed his course. He came in with weakness, not feeling well. Blood sugar, though, was reportedly elevated. White count was 20,000. His temperature was 93.7 degrees. He had clinical features of DKA with a gap of 44, a bicarbonate of 11, of 2.8 according to this. Lactate was normal. In any case, he had gastroenteritis, which may be residual from his influenza. He had hypothermia, possibly related to the infection. His DKA was controlled. It took about 24 hours. We took him off insulin and transitioned him. When he came in as an outpatient, he had been on Jardiance, I believe, 25, Victoza and metformin. There was concern that Jardiance may have triggered DKA, so recommended to stop that at least in the short term until he can follow up with his PCP. He also had rhabdomyolysis. Apparently he was so weak his could not get him off the ground. Now, she did not call the ambulance immediately, but anyway his CPK improved. I think kidney function improved with hydration, but I think initially he had a little bit of renal dysfunction. His CK was elevated at 1346, but was normal prior to discharge. He continued to improve, and finally he was able to be discharged. We did put him on Lantus because I do not know if he really would benefit from Jardiance, certainly not. His hepatitis panel was negative. His abdominal ultrasound was consistent with no liver disease. He had a little bit of a pleural effusion. His liver enzymes actually normalized prior to discharge. Sugars maintained in the 130s. DISCHARGE MEDICATIONS: Fenofibrate 160 daily, Lipitor 40 daily, Requip 1 daily, temazepam 30 at bedtime, Victoza 12 at bedtime, Lantus 15 daily and Phenergan. DISCHARGE CONDITION: Stable. A 32-minute discharge. cc: MD Jake Morales DO
== END 2019-08-28 19:26 | disposition home or self-care (01) | DRG 638 ==
LOC: SUPCPDRO → ED 08:43 → ICU 12:51 → 3N 08-27 18:51
PROVIDERS: ATTEND Internal Medicine